=== PATIENT | male | born 1950 | race Caucasian/White ===

== ENCOUNTER 2020-03-29 13:06 | Inpatient (IN) | payer MEDICARE ==
[~2020-03-29] VITALS: Ht 175.3 cm; Wt 68.2 kg
--- NOTE | 2020-03-29 13:40 | NUR ---
At bedside with MONIKA Padilla. Pt is not responding well, but did wake up saying, "Do you guys always yell steve all the time", then went back to not responding and refusing to answer questions. MONIKA Padilla pulled his hair back to reveal a large laceration to his right eye brow area.
[2020-03-29 14:25] LABS: BASOPHILS # (AUTO) 0.1 X10'3 (0-0.2); BASOPHILS % (AUTO) 0.8 % (0-1); EOSINOPHILS % (AUTO) 0 % (0-6); HEMATOCRIT 40.7 % (42.0-52.0); HEMOGLOBIN 13.5 g/dl (14.0-17.9); LYMPHOCYTES # (AUTO) 1.9 X10'3 (1.1-4.8); LYMPHOCYTES % (AUTO) 12.2 % (21-51); MEAN CORPUSCULAR HEMOGLOBIN 32.4 PG (27.0-31.0); MEAN CORPUSCULAR HGB CONC 33.2 g/dL (33.0-36.5); MEAN CORPUSCULAR VOLUME 97.6 FL (78-98); MEAN PLATELET VOLUME 8.2 FL (7.4-10.4); MONOCYTES # (AUTO) 1.1 X10'3 (0-0.9); MONOCYTES % (AUTO) 7.2 % (2-12); NEUTROPHILS # (AUTO) 12.4 X10'3 (1.8-7.7); NEUTROPHILS % (AUTO) 79.8 % (42-75); PLATELET COUNT 207 X10'3 (140-440); RED BLOOD COUNT 4.17 X10'6 (4.70-6.10); RED CELL DISTRIBUTION WIDTH 16.3 % (11.5-14.5); WHITE BLOOD COUNT 15.5 X10'3 (4.5-11.0)
[2020-03-29 14:38] LABS: ALANINE AMINOTRANSFERASE 19 U/L (12-78); ALBUMIN 3.4 G/DL (3.4-5.0); ALBUMIN/GLOBULIN RATIO 0.9 (1.1-1.5); ALKALINE PHOSPHATASE 94 IU/L (46-116); ANION GAP 11 (8-16); ASPARTATE AMINO TRANSFERASE 25 U/L (10-37); BILIRUBIN,TOTAL 0.8 MG/DL (0.1-1.0); BLOOD UREA NITROGEN 10 MG/DL (7-18); BUN/CREATININE RATIO 12.7 (5.4-32.0); CALCIUM 8.1 MG/DL (8.5-10.1); CHLORIDE 103 MMOL/L (99-107); CREATININE 0.79 MG/DL (0.60-1.10); GLUCOSE 80 MG/DL (70-104); POTASSIUM 3.5 MMOL/L (3.5-5.1); SODIUM 139 MMOL/L (135-145); TOTAL CARBON DIOXIDE 25.3 MMOL/L (24-32); TOTAL PROTEIN 7.3 G/DL (6.4-8.2); eGFR > 90 ML/MIN
[2020-03-29 14:39] LABS: ETHANOL 0.311 GM/DL (0.0-0.010)
--- NOTE | 2020-03-29 15:15 | NUR ---
MONIKA Padilla and this RN at pt's bedside. Noticed red streaks going up pt's left arm that were not there before. Also, removed bandaid from right hand that had mold on it. Pt has another hospital band on that was from 03/11/20, will see if we can find where he was at. Pt continues to be lethargic. Pt's breath smells of EtOH.
[2020-03-29 15:18] LABS: PARTIAL THROMBOPLASTIN TIME 32 SECONDS (22-32)
[2020-03-29 15:19] LABS: MAGNESIUM 1.8 MG/DL (1.5-2.4)
[2020-03-29] MEDS ORDERED: normal saline 1000ML IV soln IVB ONE (16:00)
--- NOTE | 2020-03-29 16:00 | NUR ---
Pictures taken of all wounds on pt's body and placed in his chart.
[2020-03-29] MEDS ORDERED: ceFAZolin 1GM/D5W- ADD-VANTAGE 50 ML IV ONE (16:10)
[2020-03-29 16:19] LABS: CLARITY,URINE CLOUDY (Clear); COLOR,URINE YELLOW (Yellow); GLUCOSE, URINE NEGATIVE (Neg); KETONES,URINE NEGATIVE (Neg); LEUKOCYTE ESTERASE ,URINE NEGATIVE (Neg); NITRITES, URINE NEGATIVE (Neg); OCCULT BLOOD,URINE LARGE (Neg); PROTEIN,URINE TRACE mg/dl (Neg)
[2020-03-29 16:21] LABS: UA COLLECTION TYPE FOLEY CATH
[2020-03-29 16:25] LABS: BACTERIA,URINE NONE SEEN /HPF (Neg); MUCUS STRANDS FEW /LPF (Neg); SQUAMOUS EPITHELIAL CELL,UR FEW /LPF (FEW); WBC,URINE NONE SEEN /HPF (0-4)
[2020-03-29 16:33] LABS: URINE AMPHETAMINE SCREEN NEGATIVE (Neg); URINE BARBITUATE SCREEN NEGATIVE (Neg); URINE BENZODIAZEPINES SCREEN NEGATIVE (Neg); URINE CANNABINOID SCREEN NEGATIVE (Neg); URINE COCAINE SCREEN NEGATIVE (Neg); URINE METHADONE SCREEN NEGATIVE (Neg); URINE OPIATE SCREEN NEGATIVE (Neg); URINE PHENCYCLIDINE SCREEN NEGATIVE (Neg)
--- NOTE | 2020-03-29 16:43 | NUR ---
Ancef unavailable in the omni,called pharmacy.
[2020-03-29] MEDS ORDERED: magnesium 4gm in 100ml NS 100 ML IV PRN (18:05)
[2020-03-29] MEDS ORDERED: potassium Cl 20 mEq SR tablet PO PRN (18:05)
[2020-03-29] MEDS ORDERED: magnesium 2GM in 50ml NS 50 ML IV PRN (18:05)
[2020-03-29] MEDS ORDERED: potassium CL 10mEq/100ml bag 100 ML IV PRN ×2 (18:05)
[2020-03-29] MEDS ORDERED: magnesium Cl slow-release 64mg tablet PO PRN (18:05)
[2020-03-29] MEDS ORDERED: ondansetron/PF 4mg/2ml inj IV PRN (18:05)
[2020-03-29] MEDS ORDERED: albuterol 2.5 MG/3 ML nebule NEB PRN ×2 (18:05)
[2020-03-29] MEDS ORDERED: acetaminophen 325mg tablet PO PRN (18:05)
[2020-03-29] MEDS ORDERED: NO HOME MEDS (19:23)
[2020-03-29] MEDS: vancomycin/NS 1 GM ADD-VANTAGE 250 ML IV SCH (19:56)
[2020-03-29] MEDS: K and/or MAG REPLACEMENT MC SCH (20:00)
[2020-03-29] MEDS: normal saline 1000ml 1,000 ML IV SCH (21:39)
[2020-03-29] MEDS: docusate sod 100mg capsule PO SCH (21:39)
--- NOTE | 2020-03-30 01:54 | NUR ---
CALLED DR NEELY TO GET A DIET ORDER PT IS HUNGRY, ALERT AND TALKING TO US. MOVED HIM ONTO A HOSPITAL BED WELL.
--- NOTE | 2020-03-30 02:01 | NUR ---
Patient given food and drink after diet order changed.
[2020-03-30 06:41] LABS: BASOPHILS % (AUTO) 0.5 % (0-1); EOSINOPHILS % (AUTO) 0 % (0-6); HEMOGLOBIN 12.8 g/dl (14.0-17.9); LYMPHOCYTES # (AUTO) 1.3 X10'3 (1.1-4.8); LYMPHOCYTES % (AUTO) 12.7 % (21-51); MEAN CORPUSCULAR HEMOGLOBIN 32.7 PG (27.0-31.0); MEAN CORPUSCULAR HGB CONC 33.6 g/dL (33.0-36.5); MEAN CORPUSCULAR VOLUME 97.3 FL (78-98); MEAN PLATELET VOLUME 8.3 FL (7.4-10.4); MONOCYTES # (AUTO) 0.7 X10'3 (0-0.9); MONOCYTES % (AUTO) 6.6 % (2-12); NEUTROPHILS # (AUTO) 8.5 X10'3 (1.8-7.7); NEUTROPHILS % (AUTO) 80.2 % (42-75); PLATELET COUNT 157 X10'3 (140-440); RED CELL DISTRIBUTION WIDTH 16.2 % (11.5-14.5); WHITE BLOOD COUNT 10.6 X10'3 (4.5-11.0)
[2020-03-30 06:52] LABS: ALBUMIN 2.8 G/DL (3.4-5.0); ANION GAP 12 (8-16); BLOOD UREA NITROGEN 10 MG/DL (7-18); BUN/CREATININE RATIO 16.1 (5.4-32.0); CALCIUM 8.2 MG/DL (8.5-10.1); CHLORIDE 104 MMOL/L (99-107); CREATININE 0.62 MG/DL (0.60-1.10); GLUCOSE 89 MG/DL (70-104); MAGNESIUM 1.7 MG/DL (1.5-2.4); POTASSIUM 3.4 MMOL/L (3.5-5.1); SODIUM 139 MMOL/L (135-145); TOTAL CARBON DIOXIDE 23.2 MMOL/L (24-32); eGFR > 90 ML/MIN
[2020-03-30] MEDS: vancomycin/NS 1 GM ADD-VANTAGE 250 ML IV SCH ×2 (07:35→20:09)
--- NOTE | 2020-03-30 08:10 | NUR ---
Patient in room ED 10. I have received report from Onur CAGE and had the opportunity to ask questions and assume patient care.
[2020-03-30] MEDS: K and/or MAG REPLACEMENT MC SCH ×2 (08:59→20:00)
[2020-03-30] MEDS: docusate sod 100mg capsule PO SCH ×2 (09:02→20:00)
[2020-03-30] MEDS: potassium Cl 20 mEq SR tablet PO PRN ×3 (09:02→17:44)
[2020-03-30 09:30] VITALS: BP 136/63
[2020-03-30 11:00] VITALS: BP 123/66
[2020-03-30 15:00] VITALS: BP 119/66
[2020-03-30] MEDS: nicotine 14mg patch - 24hr TD SCH (16:28)
--- NOTE | 2020-03-30 16:32 | NUR ---
New order from Dr. Rose for Nicotine patch 14 mg
[2020-03-30] MEDS: normal saline 1000ml 1,000 ML IV SCH (17:48)
--- NOTE | 2020-03-30 17:58 | NUR ---
Page to [place] PAGER ID: [phone] MESSAGE: Rosmery QUIANA [phone]. Patient [place] 3012A. Patient complaining of 10/10 pain. Can we get some pain medication on board? Thx
[2020-03-30 18:00] VITALS: BP 134/64
--- NOTE | 2020-03-30 18:38 | NUR ---
Problems reprioritized. Patient report given, questions answered & plan of care reviewed with Maye CAGE. Patient stable at transfer of care.
[2020-03-30] MEDS: lactobacillus rhamnosus 10,000 MMU CELLS/CAPSULE PO SCH (20:10)
[2020-03-30] MEDS: HYDROcodone/acetaminophen 5mg/325mg tablet PO PRN (20:11)
[2020-03-30 22:00] VITALS: BP 118/65
[2020-03-31 02:00] VITALS: BP 127/64
--- NOTE | 2020-03-31 06:18 | NUR ---
Problems reprioritized. Patient report given to Pascual, questions answered & plan of care reviewed with .
[2020-03-31] MEDS ORDERED: VANCOMYCIN LEVEL IV ONE (06:30)
--- NOTE | 2020-03-31 06:37 | NUR ---
Patient in room PCU 3012. I have received report from Maye CAGE and had the opportunity to ask questions and assume patient care.
[2020-03-31 06:44] LABS: BASOPHILS % (AUTO) 0.4 % (0-1); EOSINOPHILS # (AUTO) 0.1 X10'3 (0-0.9); HEMATOCRIT 35.1 % (42.0-52.0); HEMOGLOBIN 11.8 g/dl (14.0-17.9); LYMPHOCYTES # (AUTO) 1.6 X10'3 (1.1-4.8); LYMPHOCYTES % (AUTO) 20.1 % (21-51); MEAN CORPUSCULAR HEMOGLOBIN 32.8 PG (27.0-31.0); MEAN CORPUSCULAR HGB CONC 33.5 g/dL (33.0-36.5); MEAN CORPUSCULAR VOLUME 97.9 FL (78-98); MEAN PLATELET VOLUME 8.5 FL (7.4-10.4); MONOCYTES # (AUTO) 0.7 X10'3 (0-0.9); MONOCYTES % (AUTO) 8.3 % (2-12); NEUTROPHILS # (AUTO) 5.7 X10'3 (1.8-7.7); NEUTROPHILS % (AUTO) 70.2 % (42-75); PLATELET COUNT 135 X10'3 (140-440); RED BLOOD COUNT 3.59 X10'6 (4.70-6.10); RED CELL DISTRIBUTION WIDTH 15.6 % (11.5-14.5); WHITE BLOOD COUNT 8.2 X10'3 (4.5-11.0)
[2020-03-31 07:00] VITALS: BP 134/76
[2020-03-31 07:02] LABS: ALBUMIN 2.4 G/DL (3.4-5.0); ANION GAP 4 (8-16); BLOOD UREA NITROGEN 6 MG/DL (7-18); BUN/CREATININE RATIO 9.5 (5.4-32.0); CALCIUM 7.8 MG/DL (8.5-10.1); CHLORIDE 101 MMOL/L (99-107); CREATININE 0.63 MG/DL (0.60-1.10); GLUCOSE 104 MG/DL (70-104); MAGNESIUM 1.4 MG/DL (1.5-2.4); POTASSIUM 3.9 MMOL/L (3.5-5.1); SODIUM 134 MMOL/L (135-145); TOTAL CARBON DIOXIDE 28.6 MMOL/L (24-32); VANCOMYCIN,TROUGH 10.1 UG/ML (6.0-14.0); eGFR > 90 ML/MIN
[2020-03-31] MEDS: docusate sod 100mg capsule PO SCH ×2 (08:00→20:00)
[2020-03-31] MEDS: VANCOmycin 1250MG/NS 250ml Bag 250 ML IV SCH ×2 (08:00→20:00)
[2020-03-31] MEDS: lactobacillus rhamnosus 10,000 MMU CELLS/CAPSULE PO SCH ×2 (08:20→20:00)
[2020-03-31] MEDS: K and/or MAG REPLACEMENT MC SCH ×2 (08:20→20:00)
[2020-03-31] MEDS: HYDROcodone/acetaminophen 5mg/325mg tablet PO PRN (08:21)
[2020-03-31] MEDS: nicotine 14mg patch - 24hr TD SCH (08:22)
[2020-03-31] MEDS ORDERED: GABA300C PO (10:17)
--- NOTE | 2020-03-31 10:48 | NUR ---
New orders from Dr. Rose discontinue IV and tele
--- NOTE | 2020-03-31 14:16 | NUR ---
PAGER ID: [phone] MESSAGE: RM [id number]: PT WANTS TO LEAVE AMA, INCREASING AGITATION. EVAL FOR HOLD?? QUIANA JOYNER [id number] Addendum: 03/31/20 at 1422 by Jo-Ann Lowe RN PER DR. BRADFORD ON TELEPHONE, PAGE APPLICATION RELEASE MANAGER FOR ASSISTANCE WITH EVAL FOR 1798 HOLD. NO FURTHER ORDERS RECEIVED.
--- NOTE | 2020-03-31 14:21 | NUR ---
PAGED SEED YEAST OPERATOR: "PLEASE CALL REGARDING RM [id number]. INCREASING AGITATION, THREATENING AMA. DR BRADFORD WOULD LIKE EVAL FOR 1799 HOLD. THANKS"
--- NOTE | 2020-03-31 15:17 | NUR ---
Patient decided to leave AMA, attempting to obtain belongings from ED security. AMA form signed by patient, chance catheter removed.
[2020-03-31] MEDS: gabapentin 100mg capsule PO SCH (16:00)
[2020-03-31] MEDS: normal saline 1000ml 1,000 ML IV SCH (18:02)
[2020-03-31] MEDS: mineral oil/petrolatum, white cream 113gm jar TP SCH (20:00)
[2020-03-31] MEDS ORDERED: ondansetron 4mg rapidly disintigrating tab PO PRN (21:20)
[2020-03-31] MEDS: cephalexin 500mg capsule PO SCH (22:49)
--- NOTE | 2020-04-01 01:12 | NUR ---
AFTER FINALLY OBTAINING WHEELCHAIR FOR PATIENT HE DECIDED THAT HE WAS GONNA STAY HERE TONIGHT DR. BRADFORD WAS SURPRISED THAT PATIENT HAD NOT LEFT- ORDERS RECEIVED FOR PO ANTIBIOTICS TO BE STARTED TONIGHT--PT HAS NO TELE OR IV ACCESS AT THIS TIME
[2020-04-01 03:00] VITALS: BP 119/71
[2020-04-01 06:58] LABS: BASOPHILS % (AUTO) 0.5 % (0-1); EOSINOPHILS # (AUTO) 0.1 X10'3 (0-0.9); EOSINOPHILS % (AUTO) 1.5 % (0-6); HEMOGLOBIN 12.5 g/dl (14.0-17.9); LYMPHOCYTES # (AUTO) 1.7 X10'3 (1.1-4.8); LYMPHOCYTES % (AUTO) 21.8 % (21-51); MEAN CORPUSCULAR HEMOGLOBIN 32.7 PG (27.0-31.0); MEAN CORPUSCULAR HGB CONC 33.8 g/dL (33.0-36.5); MEAN CORPUSCULAR VOLUME 96.7 FL (78-98); MEAN PLATELET VOLUME 8.6 FL (7.4-10.4); MONOCYTES # (AUTO) 0.7 X10'3 (0-0.9); MONOCYTES % (AUTO) 8.9 % (2-12); NEUTROPHILS # (AUTO) 5.2 X10'3 (1.8-7.7); NEUTROPHILS % (AUTO) 67.3 % (42-75); PLATELET COUNT 146 X10'3 (140-440); RED BLOOD COUNT 3.83 X10'6 (4.70-6.10); RED CELL DISTRIBUTION WIDTH 15.6 % (11.5-14.5); WHITE BLOOD COUNT 7.8 X10'3 (4.5-11.0)
--- NOTE | 2020-04-01 06:59 | NUR ---
Patient in room PCU 3012. I have received report from Khoa CAGE and had the opportunity to ask questions and assume patient care.
[2020-04-01 07:13] LABS: ALBUMIN 2.6 G/DL (3.4-5.0); ANION GAP 7 (8-16); BLOOD UREA NITROGEN 4 MG/DL (7-18); BUN/CREATININE RATIO 5.8 (5.4-32.0); CALCIUM 8.2 MG/DL (8.5-10.1); CHLORIDE 100 MMOL/L (99-107); CREATININE 0.69 MG/DL (0.60-1.10); GLUCOSE 95 MG/DL (70-104); MAGNESIUM 1.4 MG/DL (1.5-2.4); POTASSIUM 3.6 MMOL/L (3.5-5.1); SODIUM 137 MMOL/L (135-145); TOTAL CARBON DIOXIDE 30.4 MMOL/L (24-32); eGFR > 90 ML/MIN
[2020-04-01 07:14] VITALS: BP 150/88
[2020-04-01] MEDS: K and/or MAG REPLACEMENT MC SCH ×2 (08:00→18:57)
[2020-04-01] MEDS: docusate sod 100mg capsule PO SCH ×2 (08:00→20:00)
[2020-04-01] MEDS: VANCOmycin 1250MG/NS 250ml Bag 250 ML IV SCH ×2 (08:00→20:00)
[2020-04-01] MEDS: lactobacillus rhamnosus 10,000 MMU CELLS/CAPSULE PO SCH ×2 (09:01→20:30)
[2020-04-01] MEDS: cephalexin 500mg capsule PO SCH ×3 (09:01→20:30)
[2020-04-01] MEDS: gabapentin 100mg capsule PO SCH ×3 (09:02→16:51)
[2020-04-01] MEDS: HYDROcodone/acetaminophen 5mg/325mg tablet PO PRN ×2 (09:03→16:56)
[2020-04-01] MEDS: nicotine 14mg patch - 24hr TD SCH (09:13)
[2020-04-01] MEDS: mineral oil/petrolatum, white cream 113gm jar TP SCH ×2 (09:22→20:42)
[2020-04-01 11:00] VITALS: BP 127/63
[2020-04-01 18:00] VITALS: BP 142/75
--- NOTE | 2020-04-01 18:52 | NUR ---
Problems reprioritized. Patient report given, questions answered & plan of care reviewed with Eileen CAGE. Patient stable at transfer of care.
[2020-04-01] MEDS ORDERED: VANCOMYCIN LEVEL IV ONE (19:30)
[2020-04-01 22:00] VITALS: BP 122/70
[2020-04-02] MEDS: HYDROcodone/acetaminophen 5mg/325mg tablet PO PRN ×4 (00:53→20:54)
[2020-04-02] MEDS: gabapentin 100mg capsule PO SCH ×4 (00:53→23:18)
[2020-04-02 05:59] LABS: BASOPHILS # (AUTO) 0.1 X10'3 (0-0.2); BASOPHILS % (AUTO) 0.7 % (0-1); EOSINOPHILS # (AUTO) 0.2 X10'3 (0-0.9); HEMATOCRIT 38.7 % (42.0-52.0); LYMPHOCYTES # (AUTO) 2.1 X10'3 (1.1-4.8); MEAN CORPUSCULAR HEMOGLOBIN 32.8 PG (27.0-31.0); MEAN CORPUSCULAR HGB CONC 33.5 g/dL (33.0-36.5); MEAN CORPUSCULAR VOLUME 97.9 FL (78-98); MEAN PLATELET VOLUME 8.5 FL (7.4-10.4); MONOCYTES # (AUTO) 0.7 X10'3 (0-0.9); MONOCYTES % (AUTO) 9.1 % (2-12); NEUTROPHILS # (AUTO) 4.7 X10'3 (1.8-7.7); NEUTROPHILS % (AUTO) 61.2 % (42-75); PLATELET COUNT 139 X10'3 (140-440); RED BLOOD COUNT 3.96 X10'6 (4.70-6.10); RED CELL DISTRIBUTION WIDTH 15.7 % (11.5-14.5); WHITE BLOOD COUNT 7.7 X10'3 (4.5-11.0)
[2020-04-02 06:00] VITALS: BP 121/71
--- NOTE | 2020-04-02 06:14 | NUR ---
REPORT GIVEN TO NILES ANDERSON.
[2020-04-02 06:17] LABS: ALBUMIN 2.7 G/DL (3.4-5.0); ANION GAP 9 (8-16); BLOOD UREA NITROGEN 8 MG/DL (7-18); BUN/CREATININE RATIO 11.6 (5.4-32.0); CALCIUM 8.1 MG/DL (8.5-10.1); CHLORIDE 102 MMOL/L (99-107); CREATININE 0.69 MG/DL (0.60-1.10); GLUCOSE 105 MG/DL (70-104); MAGNESIUM 1.4 MG/DL (1.5-2.4); POTASSIUM 3.7 MMOL/L (3.5-5.1); SODIUM 138 MMOL/L (135-145); TOTAL CARBON DIOXIDE 26.9 MMOL/L (24-32); eGFR > 90 ML/MIN
--- NOTE | 2020-04-02 06:18 | NUR ---
Patient in room PCU 3012. I have received report from Eileen CAGE and had the opportunity to ask questions and assume patient care.
[2020-04-02] MEDS: lactobacillus rhamnosus 10,000 MMU CELLS/CAPSULE PO SCH ×2 (07:05→20:38)
[2020-04-02] MEDS: nicotine 14mg patch - 24hr TD SCH (07:05)
[2020-04-02] MEDS: mineral oil/petrolatum, white cream 113gm jar TP SCH ×2 (07:08→20:38)
[2020-04-02] MEDS: cephalexin 500mg capsule PO SCH ×3 (07:10→20:37)
[2020-04-02] MEDS: docusate sod 100mg capsule PO SCH ×2 (07:14→20:00)
[2020-04-02] MEDS: K and/or MAG REPLACEMENT MC SCH ×2 (07:15→20:00)
[2020-04-02] MEDS: VANCOmycin 1250MG/NS 250ml Bag 250 ML IV SCH (07:16)
[2020-04-02 11:00] VITALS: BP 115/59
--- NOTE | 2020-04-02 11:25 | NUR ---
Dr Rose at bedside, received verbal orders to obtain CXR, sputum sample and obtain medical records from [facility]. Sent medical records request to [facility]. Will continue to monitor the patient closely.
--- NOTE | 2020-04-02 12:02 | NUR ---
Sent a page to Dr Rose regarding medical records from [facility] PAGER ID: [phone] MESSAGE: Nayeli CAGE [phone] [id number] D RUDDY Colby faxed over records from February 2020, CT reports were negative for acute findings. thanks
[2020-04-02 18:00] VITALS: BP 137/83
[2020-04-02] MEDS: normal saline 1000ml 1,000 ML IV SCH ×2 (18:02→18:03)
--- NOTE | 2020-04-02 18:06 | NUR ---
1800 dose of normal saline not administered because patient does not have IV acces.
--- NOTE | 2020-04-02 18:33 | NUR ---
Problems reprioritized. Patient report given, questions answered & plan of care reviewed with Genna CAGE.
--- NOTE | 2020-04-02 18:54 | NUR ---
Patient in room PCU 3012. I have received report from NILES Tyler and had the opportunity to ask questions and assume patient care.
[2020-04-02 22:00] VITALS: BP 118/58
[2020-04-03 02:00] VITALS: BP 138/65
--- NOTE | 2020-04-03 06:12 | NUR ---
Problems reprioritized. Patient report given, questions answered & plan of care reviewed with NILES Copeland.
--- NOTE | 2020-04-03 06:27 | NUR ---
Patient in room PCU 3012. I have received report from NILES Vail and had the opportunity to ask questions and assume patient care. Patient asleep in bed and in no acute distress.
[2020-04-03 06:32] LABS: BASOPHILS % (AUTO) 0.4 % (0-1); EOSINOPHILS # (AUTO) 0.2 X10'3 (0-0.9); EOSINOPHILS % (AUTO) 2.8 % (0-6); HEMATOCRIT 37.8 % (42.0-52.0); HEMOGLOBIN 12.7 g/dl (14.0-17.9); LYMPHOCYTES # (AUTO) 2.4 X10'3 (1.1-4.8); LYMPHOCYTES % (AUTO) 31.6 % (21-51); MEAN CORPUSCULAR HEMOGLOBIN 33.2 PG (27.0-31.0); MEAN CORPUSCULAR HGB CONC 33.7 g/dL (33.0-36.5); MEAN CORPUSCULAR VOLUME 98.4 FL (78-98); MEAN PLATELET VOLUME 8.8 FL (7.4-10.4); MONOCYTES # (AUTO) 0.9 X10'3 (0-0.9); MONOCYTES % (AUTO) 11.8 % (2-12); NEUTROPHILS # (AUTO) 4.1 X10'3 (1.8-7.7); NEUTROPHILS % (AUTO) 53.4 % (42-75); PLATELET COUNT 137 X10'3 (140-440); RED BLOOD COUNT 3.84 X10'6 (4.70-6.10); RED CELL DISTRIBUTION WIDTH 15.7 % (11.5-14.5); WHITE BLOOD COUNT 7.6 X10'3 (4.5-11.0)
[2020-04-03 06:54] LABS: ANION GAP 8 (8-16); BLOOD UREA NITROGEN 6 MG/DL (7-18); BUN/CREATININE RATIO 9.7 (5.4-32.0); CALCIUM 8.5 MG/DL (8.5-10.1); CHLORIDE 104 MMOL/L (99-107); CREATININE 0.62 MG/DL (0.60-1.10); GLUCOSE 109 MG/DL (70-104); MAGNESIUM 1.6 MG/DL (1.5-2.4); POTASSIUM 3.7 MMOL/L (3.5-5.1); SODIUM 140 MMOL/L (135-145); TOTAL CARBON DIOXIDE 28.4 MMOL/L (24-32); eGFR > 90 ML/MIN
[2020-04-03 07:00] VITALS: BP 133/67
[2020-04-03] MEDS: K and/or MAG REPLACEMENT MC SCH (08:00)
[2020-04-03] MEDS: docusate sod 100mg capsule PO SCH (08:09)
[2020-04-03] MEDS: cephalexin 500mg capsule PO SCH ×2 (08:10→13:28)
[2020-04-03] MEDS: lactobacillus rhamnosus 10,000 MMU CELLS/CAPSULE PO SCH (08:11)
[2020-04-03] MEDS: gabapentin 100mg capsule PO SCH (08:11)
[2020-04-03] MEDS: mineral oil/petrolatum, white cream 113gm jar TP SCH (08:12)
[2020-04-03] MEDS: nicotine 14mg patch - 24hr TD SCH (08:12)
--- NOTE | 2020-04-03 10:49 | NUR ---
Initial: Pt admit with AMS, SI, and RLE cellulitis. MICHEAL 0.311 on admit. Currently documented as confused and A/O x 3. Per MD notes cellulitis resolved. Pt seen by wound care, noted to have multiple wounds r/t falls, including abrasions and skin tears to arms/hands, an unstageable necrotic wound to bilat knees, and IAD to buttocks. Pt currently on a regular diet documented with 100% PO intake throughout LOS with the exception of 75% PO intake x two meals since admit. Pt meeting nutrient needs with adequate protein intake to promote wound healing and support skin integrity at this time. D/w RN recommendation for routine Thiamine, Folic acid, and MVI with MD approval given EtOH hx and elevated MCV. LBM 04/01. Pt receiving routine bowel care. Will continue to follow. Recommendations: 1) Continue regular diet 2) Routine Thiamine, Folic acid, and MVI with MD approval given EtOH hx and elevated MCV, d/w RN 3) Routine bowel care 4) Scaled wt per rx Addendum: 04/03/20 at [address] Amended: Links added.
[2020-04-03 11:00] VITALS: BP 112/57
--- NOTE | 2020-04-03 11:46 | NUR ---
Paged Dr. Rose regarding her wanting to observe the patient's wounds as well as if she would still like for the patient to go to MRI. PAGER ID: [phone] MESSAGE: [phone]. Tank Colby. Dressings are off arms for you to observe. Would you still like for the patient to have an MRI today? Thank you. Dinorah CAGE x [phone]
[2020-04-03] MEDS ORDERED: ASPI-1 PO (12:47)
--- NOTE | 2020-04-03 14:34 | NUR ---
Approached Mr. Colby with the discharge information. He is refusing to have wound photos, He is refusing to sign the the discharge documentation or to proceed with a discharge from the hospital at this time. He would like additional clothing items including shoes which he did not come to the hospital with. A warm blanket and a taxi to the [employer] store. The charge nurse is informed and making arrangements as appropriate.
--- NOTE | 2020-04-03 15:04 | NUR ---
Called [employer] for product picker. will product picker patient in 45 minutes.
--- NOTE | 2020-04-03 15:42 | NUR ---
Student Medication Administration: For this medication-pass time frame, all medication were reviewed, dispensed, administered and documented per hospital policy by SN Desiree.
--- NOTE | 2020-04-03 15:42 | NUR ---
Student documentation: I have reviewed and agree with all interventions, assessments performed and documented by SN Desiree.
--- NOTE | 2020-04-03 15:42 | NUR ---
Patient stable for discharge per MD orders. All discharge instructions reviewed and all questions answered appropriately. Patient refused to sign medicare paperwork and refused to get discharge wound pictures taken. Patient refused to take wound care supplies as well. Patient left clothes and did not want to take the clothes that he came in because he stated that they were ruined. New clothes as well as flip flops and socks were provided. Patient left flip flops and did not want to take flip flops. New prescriptions were electronically sent to [facility] on [address]. Patient wheeled down to [facility] and left via [employer].
--- NOTE | 2020-04-03 15:50 | NUR ---
Patient refused to have discharge pictures taken. Addendum: 04/03/20 at 1551 by Dinorah Deal RN Amended: Links added.
--- NOTE | 2020-04-14 08:49 | NUR ---
Case Management DC follow up: no contact info; pt homeless
== END 2020-04-03 15:49 | disposition home or self-care (01) | DRG 871 ==
LOC: ER 13:08 → ED HOLD 18:02 → UNDOADMIN 19:11 → ED HOLD 19:11 → EDBEDREQ 03-30 07:27 → PCU 3S 03-30 08:28 → ED HOLD 03-30 08:28
PROVIDERS: ADMIT Internal Medicine; ATTEND Internal Medicine
DX: A41.9 Sepsis, unspecified organism (principal); G92 Toxic encephalopathy; L03.115 Cellulitis of right lower limb; I69.351 Hemiplegia and hemiparesis following cerebral infarction affecting right dominant side; R45.851 Suicidal ideations; S61.401A Unspecified open wound of right hand, initial encounter; F10.229 Alcohol dependence with intoxication, unspecified; G56.31 Lesion of radial nerve, right upper limb; L51.9 Erythema multiforme, unspecified; X58.XXXA Exposure to other specified factors, initial encounter; F17.210 Nicotine dependence, cigarettes, uncomplicated; S01.112A Laceration without foreign body of left eyelid and periocular area, initial encounter; L89.312 Pressure ulcer of right buttock, stage 2; F10.20 Alcohol dependence, uncomplicated; Z99.3 Dependence on wheelchair; Z59.0 Homelessness; Y93.89 Activity, other specified; Y92.89 Other specified places as the place of occurrence of the external cause; Y99.8 Other external cause status
CPT/HCPCS: 36415; 70450; 71045; 80048; 80053; 80202; 80305; 80320; 81001; 83605; 83735; 84145; 85025; 85610; 85730; 87040; 87070; 87077; 87081; 87185; 87186; 93005; 94760; 99285; G0378; J0690; J3370; J7030